=== PATIENT | female | born 2000 | race Caucasian/White ===

== ENCOUNTER 2022-11-17 17:20 | Observation (INO) | payer OTHER, SELFPAY ==
--- NOTE | 2022-11-02 11:29 | PC.NURSE ---
Shruthi states wants to provide breast milk for infant by pumping and feeding. Has no interest in direct feeding at breast. Education provided and verbalizes understanding.
[2022-11-17] VITALS (12 sets, daily range): BP systolic 106–123; BP diastolic 54–72; PULSE 83–106; RESP 18; TEMP 36.6
[2022-11-17 18:09] LABS: Hematocrit 32.9 % (36.0-48.0); Hemoglobin 11.1 g/dL (12.0-16.0); Mean Corpuscular HGB Conc 33.7 g/dL (29.9-35.2); Mean Corpuscular Hemoglobin 29.1 pg (26.7-34.0); Mean Corpuscular Volume 86.4 fL (81.0-99.0); Mean Platelet Volume 10.6 fL (9.5-13.5); Platelet Count 210 10^3/uL (150-450); Red Blood Count 3.81 10^6/uL (4.20-5.40); Red Cell Distribution Width 14.5 % (11.0-15.0); White Blood Count 8.9 10^3/uL (4.0-11.0)
[2022-11-17 18:24] LABS: Amphetamine Screen Urine NEGATIVE (NEGATIVE); Barbiturates Screen Urine NEGATIVE (NEGATIVE); Benzodiazepines Screen Urine NEGATIVE (NEGATIVE); Buprenorphine Screen Urine NEGATIVE (NEGATIVE); Cannabinoid Screen Urine NEGATIVE (NEGATIVE); Cocaine Screen Urine NEGATIVE (NEGATIVE); Methadone Screen Urine NEGATIVE (NEGATIVE); Methamphetamines Screen Urine NEGATIVE (NEGATIVE); Opiate Screen Urine NEGATIVE (NEGATIVE); Oxycodone Screen Urine NEGATIVE (NEGATIVE); Phencyclidine Screen Urine NEGATIVE (NEGATIVE); Tricyclic Antidepressant Urine NEGATIVE (NEGATIVE)
[2022-11-17] MEDS: DINOPROSTONE 10 MG VAG INSERT.ER VAGINAL (18:25)
[2022-11-17] MEDS: ZOLPIDEM TARTRATE 5 MG TABLET PO (22:30)
[2022-11-18] VITALS (49 sets, daily range): BP systolic 89–145; BP diastolic 45–79; PULSE 80–109; RESP 16–18; TEMP 36.2–37.1
--- NOTE | 2022-11-18 07:23 | W.PC.ACHO ---
Registration Status: ADM IN Primary Language: Monegasque Preferred Language: Monegasque report received from gena fung RN Active Medications Generic Name Dose Route Start Last Admin Trade Name Kika PRN Reason Stop Dose Admin Acetaminophen 1,000 mg 11/17/22 17:43 Acetaminophen 500 Mg Tablet PO Q6H PRN headache/pain Calcium Carbonate 500 mg 11/17/22 17:43 Calcium Carbonate 500 Mg (200mg Elemental) Tab Chew PO TID PRN Heartburn Carboprost Tromethamine 250 mcg 11/17/22 17:29 Carboprost Tromethamine 250 Mcg/Ml 1 Ml Vial IM 11/19/22 17:29 Q15M PRN Bleeding Sodium Chloride 1,000 mls @ 125 mls/hr 11/17/22 17:30 Sodium Chloride 0.9% 1,000 Ml IV .Q8H BERNICE Oxytocin/Sodium Chloride 20 units in 1,000 mls @ 125 mls/hr 11/18/22 17:34 Pitocin 20 Unit/1,000 Ml-Ns IV 11/19/22 01:33 ONCE ONE Protocol Ampicillin 1,000 mg/ Sodium 50 mls @ 100 mls/hr 11/17/22 22:00 Chloride IV Q4H BERNICE Oxytocin/Sodium Chloride 10 units in 500 mls @ 6 mls/hr 11/18/22 07:30 Pitocin 10 Unit/500 Ml-Ns IV Q24H BERNICE Protocol 2 MILLIUNIT/MIN Ampicillin 2,000 mg/ Sodium 100 mls @ 200 mls/hr 11/18/22 08:00 Chloride IV 11/18/22 08:29 ONCE ONE Lidocaine 5 ml 11/17/22 17:29 Lidocaine Viscous 2% 15 Ml Topical Solution TOPICAL ONCE PRN Pain Lidocaine 1 ml 11/17/22 17:29 Lidocaine Hcl 1% 200 Mg/20 Ml Mdv INJ ONCE PRN Pain Methylergonovine Maleate 0.2 mg 11/17/22 17:29 Methylergonovine Maleate 0.2 Mg Tablet PO 11/19/22 17:29 Q4H PRN Uterine Contractility/Contract Methylergonovine Maleate 0.2 mg 11/17/22 17:29 Methylergonovine Maleate 0.2 Mg/Ml Ampule IM 11/19/22 17:29 ONCE PRN Uterine Contractility/Contract Ondansetron HCl 4 mg 11/17/22 17:29 Ondansetron Pf 4 Mg/2 Ml Vial IV Q6H PRN Nausea And Vomiting Ondansetron HCl 4 mg 11/17/22 17:29 Ondansetron 4 Mg Rapdis Tablet SL Q6H PRN Nausea And Vomiting Zolpidem Tartrate 5 mg 11/17/22 17:43 11/17/22 22:30 Zolpidem Tartrate 5 Mg Tablet PO 5 mg HS PRN Administration Sleep Diet Category Date Time Status Regular Consistency Diet Diet 11/17/22 Dinner Active IV Insertion/Site Date of IV Line Insertion [ 11/17/22 Short PIV (<1.75 in) right Forearm] IV Insertion Time [Short PIV ( 17:50 <1.75 in) right Forearm] Neurology Patient orientation (short person,place,time,situation list)
[2022-11-18] MEDS: 0.9 % SODIUM CHLORIDE 1,000 ML 125 ML IV (07:25)
[2022-11-18] MEDS: OXYTOCIN/0.9 % SODIUM CHLORIDE 10 UNITS/500 ML PLAST..BAG 6 UNIT IV (07:27)
[2022-11-18] MEDS: AMPICILLIN SODIUM 2,000 MG in 0.9 % SODIUM CHLORIDE 100 ML 200 MG IV (08:58)
--- NOTE | 2022-12-09 19:02 | PM.EN ---
Event Note Event Note: patient was admitted for elective induction. I then discharged her the next day undelivered per her request. She was not ruptured and she made no progress in over 24 hours. Options were discussed to be discharge and go home or continue induction. Patient verbalizes she doesn't want to lay in the bed all day and she would like to go home. Patient discharged to home, stable and not in labor.
== END 2022-11-18 17:00 | disposition home or self-care (01) ==
PROVIDERS: Admitting Provider Midwife; PCP Family Medicine; Visit Provider Obstetrics & Gynecology
DX: O61.0 Failed medical induction of labor (principal); Z3A.39 39 weeks gestation of pregnancy
CPT/HCPCS: 36415; 80307; 85027; 86850; 86900; 86901; 96374; 96375; G0378; G0379

== ENCOUNTER 2022-11-26 11:28 | Outpatient (OUT) | payer OTHER, SELFPAY ==
--- NOTE | 2022-11-26 11:34 | US_ITS ---
[address] [address] Patient Name: VARGAS FARRAR MRN: [id number] date: 2000 Sex: F Assigned Patient Location: US Current Patient Location: US Accession/Order Number: [id number] Exam Date: 11/26/2022 11:35 Report Date: 11/26/2022 16:04 At the request of: JANAY MCGRATH Procedure: US OB growth EXAMINATION: US OB growth HISTORY: 40-42 Week Of Gestation O48.0 COMPARISON: No relevant comparison available. FINDINGS: Heart Rate: 137.1 bpm Number: 1.0 Position: Cephalic Amniotic Fluid Volume: 20.3 cm Maximum Vertical Pocket: 8.0 cm BIOMETRY: BPD: 9.3 cm cm; 37 weeks 5 days HC: 34.6 cmcm; 40 weeks 0 days AC: 36.1 cm cm; 40 weeks 0 days FL: 7.8 cm cm; 39 weeks 5 days EFW: 3841.8 grams; 65% FL/AC: 21.6 FL/BPD: 83.8 HC/AC: 1.0 GESTATIONAL AGE: Age by EDC: 40 weeks 2 days KATRIN by EDC: 11/24/2022 Age by US: 39 weeks 3 days KATRIN by US: 11/30/2022 US/US OB growth IMPRESSION: 1. Single live intrauterine with growth detailed above. Electronically authenticated by: SHEN MCELROY Date: 11/26/2022 16:04
== END 2022-11-26 11:29 | disposition home or self-care (01) ==
LOC: US 11:30
PROVIDERS: PCP Family Medicine; Visit Provider Midwife
DX: O48.0 Post-term pregnancy (principal); Z3A.40 40 weeks gestation of pregnancy
CPT/HCPCS: 76816

== ENCOUNTER 2022-11-29 08:55 | Outpatient (OUT) | payer OTHER, SELFPAY ==
[2022-11-29 09:09] VITALS: BP 119/75; PULSE 88
== END 2022-11-29 10:50 | disposition home or self-care (01) ==
LOC: FBCO 08:58 → FBC 08:59
PROVIDERS: PCP Family Medicine; Visit Provider Obstetrics & Gynecology
DX: O48.0 Post-term pregnancy (principal); Z3A.00 Weeks of gestation of pregnancy not specified
CPT/HCPCS: 59025

== ENCOUNTER 2022-12-01 16:02 | Inpatient (IN) | payer OTHER, SELFPAY ==
[2022-12-01] VITALS (25 sets, daily range): BP systolic 95–143; BP diastolic 52–90; PULSE 70–101; RESP 18; TEMP 35.5–37.1
[2022-12-01 17:14] LABS: Hematocrit 31.5 % (36.0-48.0); Hemoglobin 10.5 g/dL (12.0-16.0); Mean Corpuscular HGB Conc 33.3 g/dL (29.9-35.2); Mean Corpuscular Hemoglobin 29.2 pg (26.7-34.0); Mean Corpuscular Volume 87.7 fL (81.0-99.0); Mean Platelet Volume 10.1 fL (9.5-13.5); Platelet Count 202 10^3/uL (150-450); Red Blood Count 3.59 10^6/uL (4.20-5.40); Red Cell Distribution Width 14.4 % (11.0-15.0); White Blood Count 7.6 10^3/uL (4.0-11.0)
[2022-12-01 17:26] LABS: Amphetamine Screen Urine NEGATIVE (NEGATIVE); Barbiturates Screen Urine NEGATIVE (NEGATIVE); Benzodiazepines Screen Urine NEGATIVE (NEGATIVE); Buprenorphine Screen Urine NEGATIVE (NEGATIVE); Cannabinoid Screen Urine NEGATIVE (NEGATIVE); Cocaine Screen Urine NEGATIVE (NEGATIVE); Methadone Screen Urine NEGATIVE (NEGATIVE); Methamphetamines Screen Urine NEGATIVE (NEGATIVE); Opiate Screen Urine NEGATIVE (NEGATIVE); Oxycodone Screen Urine NEGATIVE (NEGATIVE); Phencyclidine Screen Urine NEGATIVE (NEGATIVE); Tricyclic Antidepressant Urine NEGATIVE (NEGATIVE)
[2022-12-01] MEDS: DINOPROSTONE 10 MG VAG INSERT.ER VAGINAL (17:43)
[2022-12-02] VITALS (61 sets, daily range): BP systolic 75–157; BP diastolic 44–91; PULSE 55–90; RESP 9–23; TEMP 35.6–36.5; O2SAT 93–98
[2022-12-02] MEDS: 0.9 % SODIUM CHLORIDE 1,000 ML 125 ML IV (06:48)
[2022-12-02] MEDS: AMPICILLIN SODIUM 2,000 MG in 0.9 % SODIUM CHLORIDE 100 ML 200 MG IV (06:50)
[2022-12-02] MEDS: OXYTOCIN/0.9 % SODIUM CHLORIDE 10 UNITS/500 ML PLAST..BAG 6 UNIT IV (07:58)
--- NOTE | 2022-12-02 10:08 | PM.EN ---
Event Note Event Note: 0845 to room to assess patient. SVE FT-/-3 posterior. Unable to perform AROM due to high station and dilation. 0900 to room and discussed with patient exam, high station, baby remains high in pelvis, unable to rupture membranes. Discussion with patient regarding continuing Pitocin or primary section for post dates, suspected macrosomia, -3 station, no cervical change in 2 weeks since last induction. Patient verbalizes I would rather have a C/Section as we were just talking about this. I want to do what is safest for me and the baby, and I don't want to lay here and get pitocin all day and then end up getting a C/S later. I would rather we do the C/S and get him out safely. I did discuss risks, benefits and offered to continue Pitocin. Patient does not want to continue with the pitocin. I called Dr Sevilla, report given and updated him with exam and progress. Primary section scheduled for today at 11:30. I obtained consent from patient and all questions answered.
[2022-12-02] MEDS: LACTATED RINGER'S SOLUTION 1,000 ML 125 ML IV (11:03)
[2022-12-02] MEDS: FAMOTIDINE/PF 20 MG/2 ML VIAL IV (11:39)
[2022-12-02] MEDS: METOCLOPRAMIDE HCL 10 MG/2 ML VIAL IVP (11:39)
[2022-12-02] MEDS: CITRIC ACID/SODIUM CITRATE 30 ML SOLUTION ORACIT SHOHL'S SOLN PO (11:41)
--- NOTE | 2022-12-02 12:01 | PC.NURSE ---
1145: Anesthesia at bedside for preop visit- discusses with patient having penaut butter toast and yogurt at 0630.
--- NOTE | 2022-12-02 12:08 | PM.EN ---
Event Note Event Note: 1145 Anesthesia to dept to assess patient. He prefers to delay the surgery due to patient had eaten yogurt and piece of toast with peanut butter. He states it is up to Dr Sevilla if he wants to proceed. I spoke with Dr Sevilla and he was ready to proceed. Anesthesia then post phoned case until between 5-6 pm due to patient eating and her BMI of 50 and states it is not an emergent case and patient is doing well on EFM tracing and not in labor. Relayed message to Dr Sevilla and he is in agreement.
--- NOTE | 2022-12-02 12:08 | PC.NURSE ---
1205: Kylah Prince MSN, RN -director of strategic communications at patient bedside with updated plan of care.
--- NOTE | 2022-12-02 13:32 | PC.NURSE ---
1155: IV to saline lock as #2 OF LR was infusing at KVO.
--- NOTE | 2022-12-02 14:56 | PC.NURSE ---
1430: patient sleeping on right side on couch with snoring respiration. FHT's not obtained and patient left undisturbed. Kincaid emptied of 1000 mls of yellow clear urine.
--- NOTE | 2022-12-02 16:24 | P.ANCN_ITS ---
HPI - Anesthesiology Consult HPI Consult date: 03/24/23 Consult reason: previous required prolonged intubation from respiratory failure Chief complaint: INDUCTION Narrative: Per pt her past section was in [place] and they tried multiple attempts without success and proceeded to [place]. Pt remained intubated and subsquently extubated in ICU. Pt has multiple complex comorbidities but a good historian. 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 She is one of 11 siblings. She currently has wood tile installation helper strength difficulties from her arthritis. This also appears to affect multiple joints. From a respiratory system perspective the patient has required mechanical ventilation twice in the ICU due to respiratory failure. At 21 yo she was diagnosed with PNA and was on the vent for 'days'. The second time was s/p c section. She was also admitted and required oxygen with the flu in Feb 2022 for 6 days. She has seen a pulmonoligist at [facility] and states she had been diagnosed with COPD. It appears she has multiple siblings with lung disease and wonders if this is inherited. She had covid a month ago but did not get admitted. She is a former smoker with past vaping as well. [facility] Medical History (Updated 11/17/22 @ 18:34 by Roxanne Ocampo RN) Depression ?F32.A - Depression, unspecified (ICD-10) Anxiety ?F41.9 - Anxiety disorder, unspecified (ICD-10) Meds Home Medications and Allergies Home Medications Medication Instructions Recorded Confirmed Type No Known Home Medications 11/17/22 11/17/22 History ibuprofen 800 mg tablet 800 mg PO Q8H PRN pain 14 days #40 12/05/22 Rx tabs oxycodone-acetaminophen 5 mg-325 1 tab PO Q6H PRN pain 7 days #28 12/05/22 Rx mg tablet (Percocet) tabs Allergies Allergy/AdvReac Type Severity Reaction Status Date / Time No Known Drug Allergies Allergy Verified 11/17/22 17:20 Exam Narrative: Exam Narrative: MP 3 dentition appears intact distant breath sounds RRR Constitutional: Vital Signs, click to edit/add: Last Vital Signs Temp 96.3 F L 12/02/22 16:10 Pulse 86 12/02/22 16:10 Resp 16 12/02/22 09:29 BP 140/82 12/02/22 16:10 Neck & C-Spine: Other: secondary to habitus and bed it was difficult to ascertain spinous processes Results Labs Labs: Short CBC 12/01/22 Range/Units 16:50 WBC 7.6 (4.0-11.0) 10^3/uL Hgb 10.5 L (12.0-16.0) g/dL Hct 31.5 L (36.0-48.0) % Plt Count 202 (150-450) 10^3/uL Assessment and Plan Assessment and Plan Plan My opinion is the patient needs multidisciplinary care and will likely need post op MV. Her habitus and JRA/scoliosis diagnosis make neuraxial techniques challenging and potentially futile. We do have sporadic critical care availability. These options and risks were discussed with the pt. Dr. Sevilla contacted and updated.
--- NOTE | 2022-12-02 16:35 | PC.NURSE ---
1637: Kev Bray -anesthesiologist at bedside
--- NOTE | 2022-12-02 16:56 | PC.NURSE ---
1651: OR calls and states to start IV fluids. Patient returns to bed from chair and IV flushes easily and LR restarted wide open per gravity and SCD sleeves reapplied
[2022-12-02] MEDS: CEFAZOLIN SODIUM/DEXTROSE,ISO 2 GM/50 ML PIGGYBACK IV (17:42)
--- NOTE | 2022-12-02 17:44 | PC.NURSE ---
1744: TO OR PER BED
[2022-12-02] MEDS: LACTATED RINGER'S SOLUTION 1,000 ML 50 ML IV ×2 (18:14→18:24)
--- NOTE | 2022-12-02 18:43 | PM.ONB ---
Brief Operative Note Date of procedure: 12/02/22 Pre-op diagnosis: iup at 41wks, unable to induce, requesting c/s Post-op diagnosis: same as pre-op Procedure: NAME OF PROCEDURE: [ section ] PROCEDURE: Patient was taken back to the Operating Room where she was given a spinal anesthesia with Duramorph without difficulty. She was prepped and draped in the normal sterile fashion. A Pfannenstiel skin incision was then made 2 cm above the symphysis pubis and carried down to underlying rectus fascia using a Bovie. The fascia was incised in the midline and extended laterally using Liu scissors. Two Adriel clamps were placed on the superior aspect of the fascia and dissected off the underlying rectus muscles. The same was performed on the inferior aspect as well. The muscles were then in the midline. Peritoneum was identified and entered bluntly. The peritoneum was then extended superiorly and inferiorly with good visualization of the bladder. The bladder blade was inserted. A low transverse incision was made on the patient's uterus and extended laterally digitally. The was then delivered atraumatically after the bladder blade was removed in the cephalic position. The cord was clamped and cut. Cord blood was obtained. The infant was handed off to awaiting team. The patient's placenta was spontaneously delivered. The uterus was then exteriorized. The uterus was cleared of all clots and debris. The bladder blade was reinserted. The patient's uterine incision was closed using #0 Vicryl in a running lock fashion. Excellent hemostasis was assured. The uterus was then returned to the patient's abdomen. The patient's abdomen was copiously irrigated using warm saline. Peritoneal gutters were cleared of all clots and debris. Again excellent hemostasis was assured. The patient's peritoneum was closed using 3-0 Vicryl in a running fashion. The patient's fascia was closed using #0 Vicryl in a running fashion. The patient's skin was closed using 4-0 Vicryl subcuticularly. The patient tolerated the procedure well. Sponge, lap, and needle counts were correct x2. The patient was taken to the Recovery Room in stable condition. Anesthesia: spinal Surgeon: Ben Sevilla Freight Car Cleaner Delta System: JANAY MCGRATH Estimated blood loss (mL): 700 Pathology: none sent Condition: stable Disposition: floor
--- NOTE | 2022-12-02 18:44 | P.OBPRC_ITS ---
Procedure Pre-op/Post-op diagnoses: Pre-Op/Post-Op Diagnoses Operation Date: 12/02/22 17:50 <No data on this case meets the specified criteria> Procedure: Procedures Operation Date: 12/02/22 17:50 Actual Procedure Side Surgeon p Not Applicable Ben Sevilla DO Professor Of Business Administration: JANAY MCGRATH Estimated blood loss (mL): 700 Disposition: PACU Anesthesia type: Spinal
--- NOTE | 2022-12-02 19:10 | P.EN_ITS ---
Event Note Event Note: Bull Fiddle Player Note: I first assisted Dr Sevilla with primary section as directed. I then independently closed the SQ layer with 4-0 Vicryl without difficulty. I then independently closed the incision with 3-0 Vicryl on a Giovanny needle without difficulty. Hemostasis noted at completion. Sterile abdominal dressing placed on incision. Patient tolerated well.
[2022-12-02] MEDS: OXYTOCIN/0.9 % SODIUM CHLORIDE 20 UNITS/1,000 ML PLAST..BAG 200 UNIT IV (20:14)
[2022-12-02] MEDS: KETOROLAC TROMETHAMINE 30 MG/ML VIAL IVP (20:33)
[2022-12-02] MEDS: PROMETHAZINE HCL 25 MG/ML VIAL IM (22:40)
[2022-12-03] VITALS (14 sets, daily range): BP systolic 117–160; BP diastolic 64–99; PULSE 69–97; RESP 16–18; TEMP 36–37; O2SAT 95
[2022-12-03] MEDS: CEFAZOLIN SODIUM/DEXTROSE,ISO 2 GM/50 ML PIGGYBACK IV (00:01)
[2022-12-03] MEDS: KETOROLAC TROMETHAMINE 30 MG/ML VIAL IVP ×3 (02:38→14:58)
[2022-12-03] MEDS: 0.9 % SODIUM CHLORIDE 1,000 ML 125 ML IV (04:05)
--- NOTE | 2022-12-03 07:25 | PM.OBPN ---
OB - PN: Subj Subjective Patient comments: no complaints and pain well controlled [place] status: doing well Exam Constitutional Vital Signs, click to edit/add: Last Vital Signs Temp 97.7 F 12/03/22 02:38 Pulse 72 12/03/22 04:08 Resp 15 12/02/22 21:53 BP 117/64 12/03/22 04:08 Pulse Ox 97 12/02/22 20:23 Documenting provider has reviewed patient's vital signs: yes Common normals: no apparent distress Respiratory Common normals: normal respiratory effort and clear to auscultation bilaterally Cardio Common normals: regular rate and regular rhythm GI Common normals: Normal to inspection, nondistended, normoactive bowel sounds present Extremity Common normals: no clubbing, cyanosis or edema and no calf tenderness OB - PN: A/P Plan - day: 1 Plan: routine postop care Time Spent with Patient Time: Total time spent is greater than 50% in coordination of care (as documented) at patient's floor/unit and/or counseling patient: Total time spent with greater than 50% in coordination of care (as documented) at patient's floor/unit and/or counseling patient: less than 15 minutes
[2022-12-03] MEDS: ENOXAPARIN SODIUM 40 MG/0.4 ML SYRINGE SUBQ (07:30)
[2022-12-03 08:07] LABS: Basophils Percent Auto 0.1 % (0.2-2.0); Hematocrit 33.1 % (36.0-48.0); Hemoglobin 10.7 g/dL (12.0-16.0); Immature Granulocytes Abs Auto 0.08 10^3/uL (0.00-0.03); Immature Granulocytes Pct Auto 0.6 % (0.0-0.5); Lymphocytes Absolute Auto 0.9 10^3/uL (1.2-3.8); Lymphocytes Percent Auto 6.7 % (20.5-60.0); Mean Corpuscular HGB Conc 32.3 g/dL (29.9-35.2); Mean Corpuscular Hemoglobin 29.1 pg (26.7-34.0); Mean Corpuscular Volume 89.9 fL (81.0-99.0); Mean Platelet Volume 9.9 fL (9.5-13.5); Monocytes Absolute Auto 0.5 10^3/uL (0.3-0.8); Monocytes Percent Auto 3.8 % (1.7-12.0); Neutrophils Absolute Auto 11.3 10^3/uL (1.4-6.5); Neutrophils Percent Auto 88.8 % (43.0-75.0); Platelet Count 216 10^3/uL (150-450); Red Blood Count 3.68 10^6/uL (4.20-5.40); Red Cell Distribution Width 14.2 % (11.0-15.0); White Blood Count 12.7 10^3/uL (4.0-11.0)
--- NOTE | 2022-12-03 08:09 | W.PC.ACHO ---
Registration Status: ADM IN Primary Language: Syriac Preferred Language: Active Medications Generic Name Dose Route Start Last Admin Trade Name Freq PRN Reason Stop Dose Admin Acetaminophen 1,000 mg 12/01/22 20:03 Acetaminophen 500 Mg Tablet PO Q6H PRN Pain Al Hydroxide/Mg Hydroxide 2,400 mg 12/02/22 18:45 Magnesium Hydroxide 2,400 Mg/10 Ml Oral.Susp PO Q6H PRN Dyspepsia Calcium Carbonate 500 mg 12/01/22 20:03 Calcium Carbonate 500 Mg (200mg Elemental) Tab Chew PO ACHS PRN Heartburn Carboprost Tromethamine 250 mcg 12/01/22 16:55 Carboprost Tromethamine 250 Mcg/Ml 1 Ml Vial IM 12/03/22 16:55 Q15M PRN Bleeding Diphenhydramine HCl 25 mg 12/02/22 18:45 Diphenhydramine Hcl 50 Mg/Ml (1ml) Vial IV 12/03/22 18:46 Q6H PRN Itching Docusate Sodium 100 mg 12/03/22 09:00 Docusate Sodium 100 Mg Capsule PO BID BERNICE Enoxaparin Sodium 40 mg 12/03/22 06:30 12/03/22 07:30 Enoxaparin Sodium 40 Mg/0.4 Ml Syringe SUBQ 40 mg Q24H BERNICE Administration Sodium Chloride 1,000 mls @ 125 mls/hr 12/01/22 17:00 12/03/22 04:05 Sodium Chloride 0.9% 1,000 Ml IV 125 mls/hr .Q8H BERNICE Administration Ibuprofen 800 mg 12/03/22 22:00 Ibuprofen 400 Mg Tablet PO Q8H PRN Pain Ketorolac Tromethamine 30 mg 12/03/22 02:30 12/03/22 02:38 Ketorolac Tromethamine 30 Mg/Ml Vial IVP 12/03/22 14:31 30 mg Q6H BERNICE Administration Methylergonovine Maleate 0.2 mg 12/01/22 16:55 Methylergonovine Maleate 0.2 Mg/Ml Ampule IM 12/03/22 16:55 ONCE PRN Uterine Contractility/Contract Methylergonovine Maleate 0.2 mg 12/01/22 16:55 Methylergonovine Maleate 0.2 Mg Tablet PO 12/03/22 16:55 Q4H PRN Uterine Contractility/Contract Misoprostol 600 mcg 12/01/22 16:55 Misoprostol 100 Mcg Tablet PO 12/03/22 16:55 ONCE PRN Uterine Bleeding Misoprostol 800 mcg 12/01/22 16:55 Misoprostol 100 Mcg Tablet SL 12/03/22 16:55 ONCE PRN Uterine Bleeding Misoprostol 1,000 mcg 12/01/22 16:55 Misoprostol 100 Mcg Tablet FL 12/03/22 16:55 ONCE PRN Uterine Bleeding Ondansetron HCl 4 mg 12/01/22 16:55 Ondansetron 4 Mg Rapdis Tablet SL Q6H PRN Nausea And Vomiting Ondansetron HCl 4 mg 12/02/22 18:45 Ondansetron Pf 4 Mg/2 Ml Vial IV Q6H PRN Nausea And Vomiting Oxycodone/Acetaminophen 1 tab 12/02/22 18:45 Oxycodone Hcl/Acetaminophen 5mg/325mg PO Q4H PRN Pain Scale 4-6 Oxycodone/Acetaminophen 2 tab 12/02/22 18:45 Oxycodone Hcl/Acetaminophen 5mg/325mg PO Q4H PRN Pain Scale 7-10 Senna 17.2 mg 12/02/22 20:00 Sennosides 8.6 Mg Tablet PO QHS PRN Constipation Simethicone 80 mg 12/02/22 18:45 Simethicone 80 Mg Tab.Chew PO QID PRN Abdominal Distention Zolpidem Tartrate 5 mg 12/01/22 20:03 Zolpidem Tartrate 5 Mg Tablet PO HS PRN Sleep Diet Category Date Time Status Regular Consistency Diet Diet 12/02/22 Dinner Active Neurology Graciela coma scale total score 15 Respiratory Lung sounds [Bilateral Upper clear Lobe] Lung sounds [Bilateral Upper clear Lobe] Lung sounds [Bilateral Upper clear Lobe] Pulse Oximetry 97 Pulse Oximetry 98 Pulse Oximetry 98 Pulse Oximetry 98 Pulse Oximetry 97 Pulse Oximetry 95 Pulse Oximetry 93 Pulse Oximetry 95 Pulse Oximetry 93 Pulse Oximetry 94 Pulse Oximetry 97 Pulse Oximetry 97 Oxygen Delivery Method Room Air Oxygen Delivery Method Room Air Oxygen Delivery Method Room Air Catheter Urinary Catheter Date of 12/02/22 Insertion [Urethral] Urinary Catheter Time of 11:00 Insertion [Urethral]
[2022-12-03] MEDS: DOCUSATE SODIUM 100 MG CAPSULE PO ×2 (08:51→21:09)
--- NOTE | 2022-12-03 12:22 | PC.NURSE ---
Srhuthi states wants to pump and feed only. Discussed hand expression for first 24-36 hours then using electric pump for milk removal. Given example for pumping routine to establish supply. Pumping minimal of 8 times and up to 12 times in 24hours. Verbal understanding per mom. No questions at this time.
--- NOTE | 2022-12-03 16:24 | PC.NURSE ---
1400 Kincaid catheter removed without incident.
--- NOTE | 2022-12-03 17:28 | PC.NURSE ---
1640: dressing removed from abdominal incision and encouraged patient to hold pannus up and leave incision open to air. Encouraged patient to do this daily as well at home. Patient verbalized understanding.
--- NOTE | 2022-12-03 19:26 | W.PC.ACHO ---
Registration Status: ADM IN Primary Language: Urdu Preferred Language: Active Medications Generic Name Dose Route Start Last Admin Trade Name Freq PRN Reason Stop Dose Admin Acetaminophen 1,000 mg 12/01/22 20:03 Acetaminophen 500 Mg Tablet PO Q6H PRN Pain Al Hydroxide/Mg Hydroxide 2,400 mg 12/02/22 18:45 Magnesium Hydroxide 2,400 Mg/10 Ml Oral.Susp PO Q6H PRN Dyspepsia Calcium Carbonate 500 mg 12/01/22 20:03 Calcium Carbonate 500 Mg (200mg Elemental) Tab Chew PO ACHS PRN Heartburn Docusate Sodium 100 mg 12/03/22 09:00 12/03/22 08:51 Docusate Sodium 100 Mg Capsule PO 100 mg BID BERNICE Administration Enoxaparin Sodium 40 mg 12/03/22 06:30 12/03/22 07:30 Enoxaparin Sodium 40 Mg/0.4 Ml Syringe SUBQ 40 mg Q24H BERNICE Administration Sodium Chloride 1,000 mls @ 125 mls/hr 12/01/22 17:00 12/03/22 04:05 Sodium Chloride 0.9% 1,000 Ml IV 125 mls/hr .Q8H BERNICE Administration Ibuprofen 800 mg 12/03/22 22:00 Ibuprofen 400 Mg Tablet PO Q8H PRN Pain Ondansetron HCl 4 mg 12/01/22 16:55 Ondansetron 4 Mg Rapdis Tablet SL Q6H PRN Nausea And Vomiting Ondansetron HCl 4 mg 12/02/22 18:45 Ondansetron Pf 4 Mg/2 Ml Vial IV Q6H PRN Nausea And Vomiting Oxycodone/Acetaminophen 1 tab 12/02/22 18:45 Oxycodone Hcl/Acetaminophen 5mg/325mg PO Q4H PRN Pain Scale 4-6 Oxycodone/Acetaminophen 2 tab 12/02/22 18:45 Oxycodone Hcl/Acetaminophen 5mg/325mg PO Q4H PRN Pain Scale 7-10 Senna 17.2 mg 12/02/22 20:00 Sennosides 8.6 Mg Tablet PO QHS PRN Constipation Simethicone 80 mg 12/02/22 18:45 Simethicone 80 Mg Tab.Chew PO QID PRN Abdominal Distention Zolpidem Tartrate 5 mg 12/01/22 20:03 Zolpidem Tartrate 5 Mg Tablet PO HS PRN Sleep Respiratory Lung sounds [Bilateral Upper clear Lobe] Pulse Oximetry 95 Pulse Oximetry 95 Pulse Oximetry 97 Pulse Oximetry 98 Pulse Oximetry 98 Pulse Oximetry 98 Pulse Oximetry 97 Pulse Oximetry 95 Oxygen Delivery Method Room Air Oxygen Delivery Method Room Air
[2022-12-03] MEDS: IBUPROFEN 400 MG TABLET 800 MG PO (21:10)
[2022-12-04] MEDS: IBUPROFEN 400 MG TABLET 800 MG PO ×2 (05:54→17:26)
[2022-12-04] MEDS: ENOXAPARIN SODIUM 40 MG/0.4 ML SYRINGE SUBQ (07:32)
--- NOTE | 2022-12-04 07:40 | W.PC.ACHO ---
Registration Status: ADM IN Primary Language: Bulgarian Preferred Language: Active Medications Generic Name Dose Route Start Last Admin Trade Name Freq PRN Reason Stop Dose Admin Acetaminophen 1,000 mg 12/01/22 20:03 Acetaminophen 500 Mg Tablet PO Q6H PRN Pain Al Hydroxide/Mg Hydroxide 2,400 mg 12/02/22 18:45 Magnesium Hydroxide 2,400 Mg/10 Ml Oral.Susp PO Q6H PRN Dyspepsia Calcium Carbonate 500 mg 12/01/22 20:03 Calcium Carbonate 500 Mg (200mg Elemental) Tab Chew PO ACHS PRN Heartburn Docusate Sodium 100 mg 12/03/22 09:00 12/03/22 21:09 Docusate Sodium 100 Mg Capsule PO 100 mg BID BERNICE Administration Enoxaparin Sodium 40 mg 12/03/22 06:30 12/04/22 07:32 Enoxaparin Sodium 40 Mg/0.4 Ml Syringe SUBQ 40 mg Q24H BERNICE Administration Sodium Chloride 1,000 mls @ 125 mls/hr 12/01/22 17:00 12/03/22 04:05 Sodium Chloride 0.9% 1,000 Ml IV 125 mls/hr .Q8H BERNICE Administration Ibuprofen 800 mg 12/03/22 22:00 12/04/22 05:54 Ibuprofen 400 Mg Tablet PO 800 mg Q8H PRN Administration Pain Ondansetron HCl 4 mg 12/01/22 16:55 Ondansetron 4 Mg Rapdis Tablet SL Q6H PRN Nausea And Vomiting Ondansetron HCl 4 mg 12/02/22 18:45 Ondansetron Pf 4 Mg/2 Ml Vial IV Q6H PRN Nausea And Vomiting Oxycodone/Acetaminophen 1 tab 12/02/22 18:45 Oxycodone Hcl/Acetaminophen 5mg/325mg PO Q4H PRN Pain Scale 4-6 Oxycodone/Acetaminophen 2 tab 12/02/22 18:45 Oxycodone Hcl/Acetaminophen 5mg/325mg PO Q4H PRN Pain Scale 7-10 Senna 17.2 mg 12/02/22 20:00 Sennosides 8.6 Mg Tablet PO QHS PRN Constipation Simethicone 80 mg 12/02/22 18:45 Simethicone 80 Mg Tab.Chew PO QID PRN Abdominal Distention Zolpidem Tartrate 5 mg 12/01/22 20:03 Zolpidem Tartrate 5 Mg Tablet PO HS PRN Sleep Respiratory Pulse Oximetry 95 Pulse Oximetry 95 Oxygen Delivery Method Room Air Oxygen Delivery Method Room Air Oxygen Delivery Method Room Air
[2022-12-04 08:39] VITALS: BP 146/72; RESP 18; TEMP 36.7
--- NOTE | 2022-12-04 10:07 | P.OBPN_ITS ---
OB - PN: Subj Subjective Patient comments: no complaints [place] status: doing well Exam Constitutional Vital Signs, click to edit/add: Last Vital Signs Temp 98.5 F 12/03/22 23:45 Pulse 97 H 12/03/22 23:45 Resp 16 12/03/22 23:45 BP 145/83 H 12/03/22 23:45 Pulse Ox 95 12/03/22 08:10 O2 Del Method Room Air 12/04/22 09:05 Documenting provider has reviewed patient's vital signs: yes Common normals: no apparent distress Respiratory Common normals: normal respiratory effort and clear to auscultation bilaterally Cardio Common normals: regular rate and regular rhythm GI Common normals: Normal to inspection, nondistended, normoactive bowel sounds present Extremity Common normals: no clubbing, cyanosis or edema and no calf tenderness OB - PN: A/P Plan - day: 2 Time Spent with Patient Time: Total time spent is greater than 50% in coordination of care (as documented) at patient's floor/unit and/or counseling patient: Total time spent with greater than 50% in coordination of care (as documented) at patient's floor/unit and/or counseling patient: less than 15 minutes
[2022-12-04 17:10] VITALS: RESP 18
[2022-12-04 17:13] VITALS: BP 119/55; PULSE 100; RESP 18; TEMP 36.8
--- NOTE | 2022-12-04 19:27 | W.PC.ACHO ---
Registration Status: ADM IN Primary Language: Pashto Preferred Language: Active Medications Generic Name Dose Route Start Last Admin Trade Name Freq PRN Reason Stop Dose Admin Acetaminophen 1,000 mg 12/01/22 20:03 Acetaminophen 500 Mg Tablet PO Q6H PRN Pain Al Hydroxide/Mg Hydroxide 2,400 mg 12/02/22 18:45 Magnesium Hydroxide 2,400 Mg/10 Ml Oral.Susp PO Q6H PRN Dyspepsia Calcium Carbonate 500 mg 12/01/22 20:03 Calcium Carbonate 500 Mg (200mg Elemental) Tab Chew PO ACHS PRN Heartburn Docusate Sodium 100 mg 12/03/22 09:00 12/03/22 21:09 Docusate Sodium 100 Mg Capsule PO 100 mg BID BERNICE Administration Enoxaparin Sodium 40 mg 12/03/22 06:30 12/04/22 07:32 Enoxaparin Sodium 40 Mg/0.4 Ml Syringe SUBQ 40 mg Q24H BERNICE Administration Sodium Chloride 1,000 mls @ 125 mls/hr 12/01/22 17:00 12/03/22 04:05 Sodium Chloride 0.9% 1,000 Ml IV 125 mls/hr .Q8H BERNICE Administration Ibuprofen 800 mg 12/03/22 22:00 12/04/22 17:26 Ibuprofen 400 Mg Tablet PO 800 mg Q8H PRN Administration Pain Ondansetron HCl 4 mg 12/01/22 16:55 Ondansetron 4 Mg Rapdis Tablet SL Q6H PRN Nausea And Vomiting Ondansetron HCl 4 mg 12/02/22 18:45 Ondansetron Pf 4 Mg/2 Ml Vial IV Q6H PRN Nausea And Vomiting Oxycodone/Acetaminophen 1 tab 12/02/22 18:45 Oxycodone Hcl/Acetaminophen 5mg/325mg PO Q4H PRN Pain Scale 4-6 Oxycodone/Acetaminophen 2 tab 12/02/22 18:45 Oxycodone Hcl/Acetaminophen 5mg/325mg PO Q4H PRN Pain Scale 7-10 Senna 17.2 mg 12/02/22 20:00 Sennosides 8.6 Mg Tablet PO QHS PRN Constipation Simethicone 80 mg 12/02/22 18:45 Simethicone 80 Mg Tab.Chew PO QID PRN Abdominal Distention Zolpidem Tartrate 5 mg 12/01/22 20:03 Zolpidem Tartrate 5 Mg Tablet PO HS PRN Sleep Respiratory Oxygen Delivery Method Room Air Oxygen Delivery Method Room Air Oxygen Delivery Method Room Air Oxygen Delivery Method Room Air
--- NOTE | 2022-12-05 01:01 | PM.OBPN ---
OB - PN: Subj Subjective Patient comments: no complaints and pain well controlled [place] status: doing well Exam Constitutional Vital Signs, click to edit/add: Last Vital Signs Temp 98.3 F 12/04/22 17:13 Pulse 100 H 12/04/22 17:13 Resp 18 12/04/22 17:13 BP 119/55 12/04/22 17:13 Pulse Ox 95 12/03/22 08:10 O2 Del Method Room Air 12/04/22 17:10 Documenting provider has reviewed patient's vital signs: yes Common normals: no apparent distress Respiratory Common normals: normal respiratory effort and clear to auscultation bilaterally Cardio Common normals: regular rate and regular rhythm GI Common normals: Normal to inspection, nondistended, normoactive bowel sounds present Extremity Common normals: normal to inspection and no clubbing, cyanosis or edema OB - PN: A/P Plan - day: 3 Plan: routine postop care, discharge home and other (fu 1wk) Time Spent with Patient Time: Total time spent is greater than 50% in coordination of care (as documented) at patient's floor/unit and/or counseling patient: Total time spent with greater than 50% in coordination of care (as documented) at patient's floor/unit and/or counseling patient: less than 15 minutes
[2022-12-05] MEDS: IBUPROFEN 400 MG TABLET 800 MG PO (01:24)
[2022-12-05 01:27] VITALS: BP 128/70; PULSE 93; TEMP 36.8
--- NOTE | 2022-12-05 04:22 | W.PC.ACHO ---
Registration Status: ADM IN Primary Language: Tajik Preferred Language: Active Medications 0045- Report given to Theron Gage RN Generic Name Dose Route Start Last Admin Trade Name Freq PRN Reason Stop Dose Admin Acetaminophen 1,000 mg 12/01/22 20:03 Acetaminophen 500 Mg Tablet PO Q6H PRN Pain Al Hydroxide/Mg Hydroxide 2,400 mg 12/02/22 18:45 Magnesium Hydroxide 2,400 Mg/10 Ml Oral.Susp PO Q6H PRN Dyspepsia Calcium Carbonate 500 mg 12/01/22 20:03 Calcium Carbonate 500 Mg (200mg Elemental) Tab Chew PO ACHS PRN Heartburn Docusate Sodium 100 mg 12/03/22 09:00 12/03/22 21:09 Docusate Sodium 100 Mg Capsule PO 100 mg BID BERNICE Administration Enoxaparin Sodium 40 mg 12/03/22 06:30 12/04/22 07:32 Enoxaparin Sodium 40 Mg/0.4 Ml Syringe SUBQ 40 mg Q24H BERNICE Administration Sodium Chloride 1,000 mls @ 125 mls/hr 12/01/22 17:00 12/03/22 04:05 Sodium Chloride 0.9% 1,000 Ml IV 125 mls/hr .Q8H BERNICE Administration Ibuprofen 800 mg 12/03/22 22:00 12/05/22 01:24 Ibuprofen 400 Mg Tablet PO 800 mg Q8H PRN Administration Pain Ondansetron HCl 4 mg 12/01/22 16:55 Ondansetron 4 Mg Rapdis Tablet SL Q6H PRN Nausea And Vomiting Ondansetron HCl 4 mg 12/02/22 18:45 Ondansetron Pf 4 Mg/2 Ml Vial IV Q6H PRN Nausea And Vomiting Oxycodone/Acetaminophen 1 tab 12/02/22 18:45 Oxycodone Hcl/Acetaminophen 5mg/325mg PO Q4H PRN Pain Scale 4-6 Oxycodone/Acetaminophen 2 tab 12/02/22 18:45 Oxycodone Hcl/Acetaminophen 5mg/325mg PO Q4H PRN Pain Scale 7-10 Senna 17.2 mg 12/02/22 20:00 Sennosides 8.6 Mg Tablet PO QHS PRN Constipation Simethicone 80 mg 12/02/22 18:45 Simethicone 80 Mg Tab.Chew PO QID PRN Abdominal Distention Zolpidem Tartrate 5 mg 12/01/22 20:03 Zolpidem Tartrate 5 Mg Tablet PO HS PRN Sleep Respiratory Oxygen Delivery Method Room Air Oxygen Delivery Method Room Air Oxygen Delivery Method Room Air
[2022-12-05] MEDS: ENOXAPARIN SODIUM 40 MG/0.4 ML SYRINGE SUBQ (07:05)
--- NOTE | 2022-12-05 07:07 | W.PC.ACHO ---
Registration Status: ADM IN Primary Language: Bengali Preferred Language: Active Medications Generic Name Dose Route Start Last Admin Trade Name Freq PRN Reason Stop Dose Admin Acetaminophen 1,000 mg 12/01/22 20:03 Acetaminophen 500 Mg Tablet PO Q6H PRN Pain Al Hydroxide/Mg Hydroxide 2,400 mg 12/02/22 18:45 Magnesium Hydroxide 2,400 Mg/10 Ml Oral.Susp PO Q6H PRN Dyspepsia Calcium Carbonate 500 mg 12/01/22 20:03 Calcium Carbonate 500 Mg (200mg Elemental) Tab Chew PO ACHS PRN Heartburn Docusate Sodium 100 mg 12/03/22 09:00 12/03/22 21:09 Docusate Sodium 100 Mg Capsule PO 100 mg BID BERNICE Administration Enoxaparin Sodium 40 mg 12/03/22 06:30 12/05/22 07:05 Enoxaparin Sodium 40 Mg/0.4 Ml Syringe SUBQ 40 mg Q24H BERNICE Administration Sodium Chloride 1,000 mls @ 125 mls/hr 12/01/22 17:00 12/03/22 04:05 Sodium Chloride 0.9% 1,000 Ml IV 125 mls/hr .Q8H BERNICE Administration Ibuprofen 800 mg 12/03/22 22:00 12/05/22 01:24 Ibuprofen 400 Mg Tablet PO 800 mg Q8H PRN Administration Pain Ondansetron HCl 4 mg 12/01/22 16:55 Ondansetron 4 Mg Rapdis Tablet SL Q6H PRN Nausea And Vomiting Ondansetron HCl 4 mg 12/02/22 18:45 Ondansetron Pf 4 Mg/2 Ml Vial IV Q6H PRN Nausea And Vomiting Oxycodone/Acetaminophen 1 tab 12/02/22 18:45 Oxycodone Hcl/Acetaminophen 5mg/325mg PO Q4H PRN Pain Scale 4-6 Oxycodone/Acetaminophen 2 tab 12/02/22 18:45 Oxycodone Hcl/Acetaminophen 5mg/325mg PO Q4H PRN Pain Scale 7-10 Senna 17.2 mg 12/02/22 20:00 Sennosides 8.6 Mg Tablet PO QHS PRN Constipation Simethicone 80 mg 12/02/22 18:45 Simethicone 80 Mg Tab.Chew PO QID PRN Abdominal Distention Zolpidem Tartrate 5 mg 12/01/22 20:03 Zolpidem Tartrate 5 Mg Tablet PO HS PRN Sleep Respiratory Oxygen Delivery Method Room Air Oxygen Delivery Method Room Air Oxygen Delivery Method Room Air
[2022-12-05 08:33] VITALS: BP 131/71; PULSE 92
[2022-12-05] MEDS: DOCUSATE SODIUM 100 MG CAPSULE PO (08:39)
[2022-12-05 08:41] VITALS: RESP 17; TEMP 37.4
--- NOTE | 2022-12-05 08:43 | PC.NURSE ---
steri strips to edges of incision off after shower. new steri strips applied.
--- NOTE | 2022-12-05 09:36 | PM.OBDS ---
DS: Providers Provider Date of admission: 12/01/22 16:02 Primary care physician: ARMANDO LOPEZ Admitting clinician: JANAY MCGRATH Attending physician on admission: JANAY MCGRATH Consults: 12/01/22 16:58 Consult to Anesthesiology Routine Consulting Provider: Renan Bray Reason for consultation: epidural Has provider been notified: Yes 12/02/22 06:33 Consult to Anesthesiology Routine Consulting Provider: Renan Bray Reason for consultation: epidural Has provider been notified: No Attending physician on discharge: JANAY MCGRATH Discharging clinician: JANAY MCGRATH Anticipated date of discharge: 12/05/22 DS: Diagnosis Discharge Diagnosis (1) Delivery by section: OB - DS: Summary Hospital Course Time spent discussing smoking cessation with patient: 3 to 10 minutes Peripartum Data - Procedures: Procedures Operation Date: 12/02/22 17:50 Actual Procedure Side Surgeon p Not Applicable Ben Sevilla DO Peripartum Data - Vaginal Delivery Procedures: Procedures Operation Date: 12/02/22 17:50 Actual Procedure Side Surgeon p Not Applicable Ben Sevilla DO Complications complications: none Infant Delivery method: section Gender: male Status at Discharge Functional status at discharge: independent ambulation Overall status at discharge: patient is progressing back to baseline Time Spent with Patient Time attestation: Total time spent providing and/or coordinating discharge services: Time spent: less than 30 minutes Exam Constitutional Vital Signs, click to edit/add: Last Vital Signs Temp 99.4 F 12/05/22 08:41 Pulse 92 H 12/05/22 08:33 Resp 17 12/05/22 08:41 BP 131/71 12/05/22 08:33 Pulse Ox 95 12/03/22 08:10 O2 Del Method Room Air 12/05/22 01:26 Documenting provider has reviewed patient's vital signs: yes Common normals: no apparent distress and oriented x3 General appearance: cooperative and comfortable Orientation/consciousness: Yes awake, Yes oriented to person, Yes oriented to place and Yes oriented to time HENMT Common normals: normocephalic Eye Common normals: EOMs intact bilaterally General eye: normal appearance of both eyes Neck & C-Spine Common normals: full ROM and no lymphadenopathy General: normal visual inspection Lymph Lymphatic: no lymphadenopathy noted Chest Common normals: inspection of chest normal Respiratory Common normals: normal respiratory effort and clear to auscultation bilaterally Cardio Common normals: no JVD, regular rate, regular rhythm and no murmurs Rate: regular rate Rhythm: regular rhythm GI Common normals: Normal to inspection, nondistended, normoactive bowel sounds present Palpation: soft and firm Common normals: no CVA tenderness Back & Pelvis Common normals: no CVA tenderness Extremity Common normals: normal to inspection and full ROM Neuro Common normals: oriented x3 and moves all extremities Sensorium/orientation: awake, alert, oriented to person, oriented to place and oriented to time Psych Common normals: mental status grossly normal, thought process normal, cooperative and affect normal Discharge Plan Discharge Disposition: Home, Self-Care Condition: Good Assessment: completed Discharge Medications: New ibuprofen 800 mg tablet 800 mg PO Q8H PRN (Reason: pain) 14 Days Qty: 40 0RF oxycodone-acetaminophen [Percocet] 5-325 mg tablet 1 tab PO Q6H PRN (Reason: pain) 7 Days Qty: 28 0RF No Action No Known Home Medications Activity: increase activity as tolerated Diet: regular diet Forms: Delivery - Discharge, Portal Instructions Follow Up Appointments: follow up with [facility] in 1 week for post op visit
== END 2022-12-05 11:45 | disposition home or self-care (01) | DRG 540 ==
PROVIDERS: Obstetrics & Gynecology; Admitting Provider Midwife; PCP Family Medicine; Visit Provider Midwife
PROC: 10D00Z1 Extraction of Products of Conception, Low, Open Approach (ICD-10-PCS; CPT 59514; principal; 2022-12-02 17:50)
DX: O48.0 Post-term pregnancy (principal); O99.824 Streptococcus B carrier state complicating childbirth; Z3A.41 41 weeks gestation of pregnancy; Z37.0 Single live birth; Z86.16 Personal history of COVID-19
CPT/HCPCS: 36415; 51702; 59025; 80307; 85025; 85027; 86850; 86900; 86901; 94667; 94668; 96365; 96372; 96375; 96376

== ENCOUNTER 2022-12-10 08:13 | Outpatient (OUT) | payer OTHER, SELFPAY | END 2022-12-10 08:14 | disposition home or self-care (01) | LOC: FBCO 08:14 | PROVIDERS: PCP Family Medicine; Visit Provider Midwife | DX: Z39.2 Encounter for routine postpartum follow-up (principal) ==